=== PATIENT | male | born 1985 | race Caucasian/White ===

== ENCOUNTER → 2017-04-24 | Outpatient (CLI) | payer MEDICARE, OTHER | END | disposition home or self-care (01) | LOC: LABWHC1 16:29 | PROVIDERS: ATTEND Psychiatry & Neurology Neurology | DX: G40.209 Localization-related (focal) (partial) symptomatic epilepsy and epileptic syndromes with complex partial seizures, not intractable, without status epilepticus (principal) | CPT/HCPCS: 36415; 80164; 84450; 84460 ==

== ENCOUNTER → 2017-07-25 | Outpatient (CLI) | payer MEDICARE, OTHER ==
[2017-07-25 15:22] LABS: Basophils # (A) 0.1 k/uL (0-0.2); Basophils % (A) 1 %; CH 32.2; CHCM 34.7; Eosinophils # (A) 0.1 k/uL (0-0.7); Eosinophils % (A) 1 %; HCT 41.1 % (39.0-53.0); HGB 14.1 gm/dL (13.0-17.5); Luc # (Auto) 0.11; Luc % (Auto) 1; Lymphocytes # (A) 2.3 k/uL (1.0-4.8); Lymphocytes % (A) 24 %; MCH 32.2 pg (25.0-35.0); MCHC 34.5 g/dL (31.0-37.0); MCV 93.4 fL (80.0-100.0); Mean Platelet Volume 7.1; Monocytes # (A) 0.4 k/uL (0-1.0); Monocytes % (A) 4 %; Neutrophils # (A) 6.6 k/uL (1.3-7.7); Neutrophils % (A) 69 %; RDW 14.6 % (11.5-15.5); WBC 9.6 k/uL (3.8-10.6); WBC (Perox) 10.14
== END | disposition home or self-care (01) ==
LOC: LABWHC1 15:01
PROVIDERS: ATTEND Psychiatry & Neurology Neurology
DX: G40.209 Localization-related (focal) (partial) symptomatic epilepsy and epileptic syndromes with complex partial seizures, not intractable, without status epilepticus (principal)
CPT/HCPCS: 36415; 80164; 84450; 84460; 85025

== ENCOUNTER → 2017-12-26 | Outpatient (CLI) | payer MEDICARE, OTHER ==
[2017-12-26 11:29] LABS: Basophils # (A) 0.1 k/uL (0-0.2); Basophils % (A) 1 %; Eosinophils # (A) 0.2 k/uL (0-0.7); Eosinophils % (A) 2 %; HCT 45.4 % (39.0-53.0); HGB 15.5 gm/dL (13.0-17.5); Lymphocytes # (A) 2.9 k/uL (1.0-4.8); Lymphocytes % (A) 30 %; MCH 31.4 pg (25.0-35.0); MCHC 34.1 g/dL (31.0-37.0); MCV 91.9 fL (80.0-100.0); Mean Platelet Volume 6.7; Monocytes # (A) 0.5 k/uL (0-1.0); Monocytes % (A) 6 %; Neutrophils # (A) 5.6 k/uL (1.3-7.7); Neutrophils % (A) 59 %; Platelet Count 265 k/uL (150-450); RBC 4.94 m/uL (4.30-5.90); RDW 12.8 % (11.5-15.5); WBC 9.5 k/uL (3.8-10.6)
[2017-12-26 11:38] LABS: Valproic Acid (Depakene) 32.1 ug/mL
== END | disposition home or self-care (01) ==
LOC: LABWHC1 10:46
PROVIDERS: ATTEND Psychiatry & Neurology Neurology
DX: G40.209 Localization-related (focal) (partial) symptomatic epilepsy and epileptic syndromes with complex partial seizures, not intractable, without status epilepticus (principal)
CPT/HCPCS: 36415; 80164; 84450; 84460; 85025

== ENCOUNTER → 2018-01-01 | Outpatient (CLI) | payer MEDICARE, OTHER | END | disposition home or self-care (01) | LOC: LABWHC1 10:47 | PROVIDERS: ATTEND Psychiatry & Neurology Neurology | DX: G40.209 Localization-related (focal) (partial) symptomatic epilepsy and epileptic syndromes with complex partial seizures, not intractable, without status epilepticus (principal) | CPT/HCPCS: 36415; 80164 ==

== ENCOUNTER → 2018-01-07 | Outpatient (CLI) | payer MEDICARE, OTHER | END | disposition home or self-care (01) | LOC: LABWHC1 13:54 | PROVIDERS: ATTEND Psychiatry & Neurology Neurology | DX: G40.209 Localization-related (focal) (partial) symptomatic epilepsy and epileptic syndromes with complex partial seizures, not intractable, without status epilepticus (principal) | CPT/HCPCS: 36415; 80164 ==

== ENCOUNTER → 2018-01-18 | Outpatient (CLI) | payer MEDICARE, OTHER | END | disposition home or self-care (01) | LOC: LABWHC1 15:28 | PROVIDERS: ATTEND Psychiatry & Neurology Neurology | DX: G40.209 Localization-related (focal) (partial) symptomatic epilepsy and epileptic syndromes with complex partial seizures, not intractable, without status epilepticus (principal) | CPT/HCPCS: 36415; 80164 ==

== ENCOUNTER → 2018-07-09 | Outpatient (CLI) | payer MEDICARE, OTHER ==
[2018-07-09 13:43] LABS: Basophils % (A) 1 %; Eosinophils # (A) 0.2 k/uL (0-0.7); Eosinophils % (A) 3 %; HGB 14.7 gm/dL (13.0-17.5); Lymphocytes # (A) 2.3 k/uL (1.0-4.8); Lymphocytes % (A) 33 %; MCHC 34.1 g/dL (31.0-37.0); MCV 90.9 fL (80.0-100.0); Mean Platelet Volume 6.4; Monocytes # (A) 0.5 k/uL (0-1.0); Monocytes % (A) 7 %; Neutrophils # (A) 3.8 k/uL (1.3-7.7); Neutrophils % (A) 54 %; Platelet Count 282 k/uL (150-450); RBC 4.73 m/uL (4.30-5.90); RDW 13.2 % (11.5-15.5)
[2018-07-09 14:10] LABS: Valproic Acid (Depakene) 11.8 ug/mL
== END | disposition home or self-care (01) ==
LOC: LABWHC1 12:19
PROVIDERS: ATTEND Psychiatry & Neurology Neurology
DX: G40.209 Localization-related (focal) (partial) symptomatic epilepsy and epileptic syndromes with complex partial seizures, not intractable, without status epilepticus (principal)
CPT/HCPCS: 36415; 80164; 84450; 84460; 85025

== ENCOUNTER → 2018-07-17 | Outpatient (CLI) | payer MEDICARE, OTHER ==
--- NOTE | 2018-07-17 09:27 | CT ---
EXAMINATION TYPE: CT brain wo con DATE OF EXAM: 07/17/2018 COMPARISON: None HISTORY: epilepsy CT DLP: [address] of the brain was performed. Craniotomy change high right parietal occipital region with postoperative encephalomalacia noted. The the remaining ventricles, basal cisterns and sulci overlying the cerebral convexities demonstrate a normal appearance. There is no evidence for intracranial hemorrhage or sulcal effacement. No mass effects are seen. Osseous calvarium is intact. If symptoms persist consider MRI as clinically warranted. IMPRESSION: 1. No acute intracranial process is seen at this time. Postoperative changes of high right parietal occipital craniotomy. Underlying postoperative encephalomalacia.
== END | disposition home or self-care (01) ==
LOC: RADCTMAIN 09:01
PROVIDERS: ATTEND Psychiatry & Neurology Neurology
DX: G93.89 Other specified disorders of brain (principal); Z98.890 Other specified postprocedural states
CPT/HCPCS: 70450

== ENCOUNTER 2019-05-30 12:59 | Emergency (ER) | payer MEDICARE, OTHER, BC ==
[2019-05-30 13:17] VITALS: BP 113/69; PULSE 75; RESP 18; TEMP 98.5
[2019-05-30] MEDS ORDERED: LIDOCAINE 1% INJ 10MG/ML (20 ML MDV) SQ ONE (13:30)
[2019-05-30] MEDS ORDERED: DIPH,PERTUS(ACELL)TETVAC-LF 0.5 ML VIAL IM ONE (13:30)
--- NOTE | 2019-05-30 14:06 | ED ---
Wound/Laceration HPI - General Chief Complaint: Wound/Laceration Stated Complaint: Thumb Laceration Time Seen by Provider: 05/30/19 13:27 Source: patient Mode of arrival: ambulatory Limitations: no limitations - History of Present Illness Initial Comments: Patient is a 33-year-old male presents to emergency Department with a laceration to the left thumb. Patient states he was trying to cut something and slipped and cut his thumb. Patient does not know his last tetanus vaccine. Bleeding is controlled at this time. Patient has no other complaints at this time. - Related Data Allergies Allergy/AdvReac Type Severity Reaction Status Date / Time Cephalosporins Allergy Unknown Verified 05/30/19 13:18 Penicillins Allergy Unknown Verified 05/30/19 13:18 Review of Systems ROS Statement: Those systems with pertinent positive or pertinent negative responses have been documented in the HPI. ROS Other: All systems not noted in ROS Statement are negative. Past Medical History Past Medical History: No Reported History History of Any Multi-Drug Resistant Organisms: MRSA Date of last positivie culture/infection: 99 Additional Past Surgical History / Comment(s): head plastic surgery, avm repair to brain Past Psychological History: No Psychological Hx Reported Smoking Status: Current every day smoker Past Alcohol Use History: None Reported Past Drug Use History: Marijuana General Exam - General Exam Comments Initial Comments: GENERAL: Well-appearing, well-nourished and in no acute distress. HEAD: Atraumatic, normocephalic. EYES: Pupils equal round and reactive to light, extraocular movements intact, sclera anicteric, conjunctiva are normal. ENT: TMs normal, nares patent, oropharynx clear without exudates. Moist mucous membranes. NECK: Normal range of motion, supple without lymphadenopathy or JVD. LUNGS: Breath sounds clear to auscultation bilaterally and equal. No wheezes rales or rhonchi. HEART: Regular rate and rhythm without murmurs, rubs or gallops. ABDOMEN: Soft, nontender, normoactive bowel sounds. No guarding, no rebound. No masses appreciated. : Deferred EXTREMITIES: Normal range of motion, no pitting or edema. No clubbing or cyanosis. NEUROLOGICAL: Cranial nerves II through XII grossly intact. Normal speech, normal gait. PSYCH: Normal mood, normal affect. Limitations: no limitations Expanded Type of lesion: Present: laceration (Left thumb, dorsal aspect proximal to the IP joint.) Course Vital Signs 05/30/19 13:14 Temperature 98.5 F Pulse Rate 75 Respiratory 18 Rate Blood Pressure 113/69 O2 Sat by Pulse 97 Oximetry Procedures - Laceration Laceration #1 Consent Obtained: verbal consent Indication: laceration Site: other (Left thumb, dorsal aspect, proximal to the IP joint) Size (cm): 1 Description: linear Depth: simple, single layer Anesthetic Used: lidocaine 1% Anesthesia Technique: local infiltration Amount (mls): 2 Pre-repair: irrigated extensively Type of Sutures: nylon Size of Sutures: 4-0 Number of Sutures: 2 Technique: simple, interrupted Patient Tolerated Procedure: well Medical Decision Making - Medical Decision Making Patient is a 33-year-old male with a laceration to his left thumb. Wound was cleaned, and closed with 2, 4-0 sutures. Patient tolerated procedures well. Patient will return in 10-12 days to have them removed. Patient is in agreement with this plan. Patient's tetanus vaccine was updated today. Case discussed with Dr. Briceno. Disposition Clinical Impression: Laceration of left thumb Disposition: HOME SELF-CARE Condition: Stable Instructions (If sedation given, give patient instructions): Care For Your Stitches (ED) Additional Instructions: Please return to the Emergency Department if symptoms worsen or any other concerns. Sutures need to be removed in 10-12 days. Is patient prescribed a controlled substance at d/c from ED?: No Referrals: Jared Collins MD [Primary Care Provider] - 1-2 days
== END 2019-05-30 14:18 | disposition home or self-care (01) ==
LOC: EC 12:59
DX: S61.012A Laceration without foreign body of left thumb without damage to nail, initial encounter (principal); F17.200 Nicotine dependence, unspecified, uncomplicated; Z23 Encounter for immunization; Z86.14 Personal history of Methicillin resistant Staphylococcus aureus infection; Z88.1 Allergy status to other antibiotic agents; Z88.0 Allergy status to penicillin; W26.8XXA Contact with other sharp object(s), not elsewhere classified, initial encounter; Y93.89 Activity, other specified
CPT/HCPCS: 90715; 99282; 12001; 90471; J2001

== ENCOUNTER 2019-11-18 08:56 | Inpatient (IN) | payer MEDICARE, MEDICAID ==
--- NOTE | 2019-11-18 09:30 | ED ---
General Adult HPI - General Chief complaint: Psychiatric Symptoms Stated complaint: mental health Time Seen by Provider: 11/18/19 09:06 Source: patient, family, RN notes reviewed, old records reviewed Mode of arrival: ambulatory Limitations: no limitations - History of Present Illness Initial comments: 33-year-old male presenting for psychiatric evaluation. Patient's reports increased suicidal ideation and plan to cut himself with a razor. He states he went to the store to buy a razor or steal a razor but was unable to do so. He's had increased marital issues and has been fighting with his . Denies any drug ingestion. Denies alcohol abuse. History of depression. - Related Data Home Medications Medication Instructions Recorded Confirmed No Known Home Medications 11/18/19 11/18/19 Allergies Allergy/AdvReac Type Severity Reaction Status Date / Time Cephalosporins Allergy Unknown Verified 11/18/19 10:52 Penicillins Allergy Unknown Verified 11/18/19 10:52 Review of Systems ROS Statement: Those systems with pertinent positive or pertinent negative responses have been documented in the HPI. ROS Other: All systems not noted in ROS Statement are negative. Past Medical History Past Medical History: No Reported History History of Any Multi-Drug Resistant Organisms: MRSA Date of last positivie culture/infection: 99 Additional Past Surgical History / Comment(s): head plastic surgery, avm repair to brain Past Psychological History: No Psychological Hx Reported Smoking Status: Current every day smoker Past Alcohol Use History: None Reported Past Drug Use History: Marijuana General Exam Limitations: no limitations General appearance: alert, in no apparent distress Head exam: Present: atraumatic, normocephalic Eye exam: Present: normal appearance, PERRL ENT exam: Present: normal exam Neck exam: Present: normal inspection. Absent: tenderness, meningismus Respiratory exam: Present: normal lung sounds bilaterally. Absent: respiratory distress, wheezes Cardiovascular Exam: Present: regular rate, normal rhythm GI/Abdominal exam: Present: soft. Absent: distended, tenderness Extremities exam: Present: normal inspection, normal capillary refill. Absent: pedal edema Neurological exam: Present: alert, oriented X3, CN II-XII intact. Absent: motor sensory deficit Psychiatric exam: Present: depressed, anxious, suicidal ideation Skin exam: Present: warm, dry, intact. Absent: cyanosis, diaphoretic Course Vital Signs 11/18/19 08:57 Temperature 98.2 F Pulse Rate 84 Respiratory 16 Rate Blood Pressure 146/82 O2 Sat by Pulse 98 Oximetry Medical Decision Making - Medical Decision Making 33 yo male presenting with suicidal ideation and depression. Patient was evaluated, medically cleared. He was evaluated by EPS and felt to require inpatient psychiatric evaluation treatment. He will be admitted to this [facility]. - Lab Data Result diagrams: 11/18/19 11:42 11/18/19 11:42 Lab Results 11/18/19 11/18/19 11/18/19 Range/Units 11:42 11:42 12:30 WBC 10.5 (3.8-10.6) k/uL RBC 4.98 (4.30-5.90) m/uL Hgb 15.2 (13.0-17.5) gm/dL Hct 44.5 (39.0-53.0) % MCV 89.4 (80.0-100.0) fL MCH 30.5 (25.0-35.0) pg MCHC 34.1 (31.0-37.0) g/dL RDW 12.6 (11.5-15.5) % Plt Count 310 (150-450) k/uL Neutrophils % 71 % Lymphocytes % 22 % Monocytes % 5 % Eosinophils % 1 % Basophils % 0 % Neutrophils # 7.4 (1.3-7.7) k/uL Lymphocytes # 2.3 (1.0-4.8) k/uL Monocytes # 0.5 (0-1.0) k/uL Eosinophils # 0.1 (0-0.7) k/uL Basophils # 0.0 (0-0.2) k/uL Sodium 142 (137-145) mmol/L Potassium 4.3 (3.5-5.1) mmol/L Chloride 106 (98-107) mmol/L Carbon Dioxide 22 (22-30) mmol/L Anion Gap 14 mmol/L BUN 16 (9-20) mg/dL Creatinine 0.65 L (0.66-1.25) mg/dL Est GFR (CKD-EPI)AfAm >90 (>60 ml/min/1.73 sqM) Est GFR (CKD-EPI)NonAf >90 (>60 ml/min/1.73 sqM) Glucose 87 (74-99) mg/dL Calcium 10.6 H (8.4-10.2) mg/dL Total Bilirubin 0.6 (0.2-1.3) mg/dL AST 26 (17-59) U/L ALT 23 (4-49) U/L Alkaline Phosphatase 111 (38-126) U/L Total Protein 7.9 (6.3-8.2) g/dL Albumin 4.9 (3.5-5.0) g/dL Urine Color Yellow Urine Appearance Clear (Clear) Urine pH 6.0 (5.0-8.0) Ur Specific [place] 1.020 (1.001-1.035) Urine Protein Negative (Negative) Urine Glucose (UA) Negative (Negative) Urine Ketones Trace H (Negative) Urine Blood Negative (Negative) Urine Nitrite Negative (Negative) Urine Bilirubin Negative (Negative) Urine Urobilinogen <2.0 (<2.0) mg/dL Ur Leukocyte Esterase Negative (Negative) Urine Opiates Screen Not Detected (NotDetected) Ur Oxycodone Screen Not Detected (NotDetected) Urine Methadone Screen Not Detected (NotDetected) Ur Propoxyphene Screen Not Detected (NotDetected) Ur Barbiturates Screen Not Detected (NotDetected) U Tricyclic Antidepress Not Detected (NotDetected) Ur Phencyclidine Scrn Not Detected (NotDetected) Ur Amphetamines Screen Not Detected (NotDetected) U Methamphetamines Scrn Not Detected (NotDetected) U Benzodiazepines Scrn Not Detected (NotDetected) Urine Cocaine Screen Not Detected (NotDetected) U Marijuana (THC) Screen Detected H (NotDetected) Disposition Clinical Impression: Depression, Suicidal ideation Disposition[facility] Condition: Stable Is patient prescribed a controlled substance at d/c from ED?: No Decision to Admit Reason: Admit from EC Decision Date: 11/18/19 Decision Time: 15:03
[2019-11-18 12:33] LABS: Basophils % (A) 0 %; Eosinophils # (A) 0.1 k/uL (0-0.7); Eosinophils % (A) 1 %; HCT 44.5 % (39.0-53.0); HGB 15.2 gm/dL (13.0-17.5); Lymphocytes # (A) 2.3 k/uL (1.0-4.8); Lymphocytes % (A) 22 %; MCH 30.5 pg (25.0-35.0); MCHC 34.1 g/dL (31.0-37.0); MCV 89.4 fL (80.0-100.0); Mean Platelet Volume 6.8; Monocytes # (A) 0.5 k/uL (0-1.0); Monocytes % (A) 5 %; Neutrophils # (A) 7.4 k/uL (1.3-7.7); Neutrophils % (A) 71 %; Platelet Count 310 k/uL (150-450); RBC 4.98 m/uL (4.30-5.90); RDW 12.6 % (11.5-15.5); WBC 10.5 k/uL (3.8-10.6)
[2019-11-18 12:45] LABS: ALT 23 U/L (4-49); AST 26 U/L (17-59); African American GFR (CKD) >90 (>60 ml/min/1.73 sqM); Albumin 4.9 g/dL (3.5-5.0); Alkaline Phosphatase 111 U/L (38-126); Anion Gap 14 mmol/L; Blood Urea Nitrogen 16 mg/dL (9-20); Calcium 10.6 mg/dL (8.4-10.2); Carbon Dioxide 22 mmol/L (22-30); Chloride 106 mmol/L (98-107); Glucose 87 mg/dL (74-99); Non-African American GFR(CKD) >90 (>60 ml/min/1.73 sqM); Potassium 4.3 mmol/L (3.5-5.1); Sodium 142 mmol/L (137-145); Total Bilirubin 0.6 mg/dL (0.2-1.3); Total Protein 7.9 g/dL (6.3-8.2)
[2019-11-18 13:13] LABS: Appearance,Urine Clear (Clear); Bilirubin,Urine Negative (Negative); Blood,Urine Negative (Negative); Color,Urine Yellow; Glucose,Urine (UA) Negative (Negative); Ketones,Urine Trace (Negative); Leukocyte Esterase,Urine Negative (Negative); Nitrite,Urine Negative (Negative); Protein,Urine Negative (Negative); Urobilinogen,Urine <2.0 mg/dL (<2.0)
[2019-11-18 13:24] LABS: Amphetamine Screen,Urine Not Detected (NotDetected); Barbiturate Screen,Urine Not Detected (NotDetected); Benzodiazepines Screen,Urine Not Detected (NotDetected); Cocaine Screen,Urine Not Detected (NotDetected); Methadone Screen, Urine Not Detected (NotDetected); Opiate Screen,Urine Not Detected (NotDetected); Oxycodone Screen, Urine Not Detected (NotDetected); Phencyclidine Screen,Urine Not Detected (NotDetected); Tricyclic Antidepressant,Urine Not Detected (NotDetected); Urn Cannabinoid Scrn Detected (NotDetected)
[2019-11-18] MEDS ORDERED: MAG HYDROX/AL HYDROX/SIMETH 30 ML CUP PO PRN (14:39)
[2019-11-18] MEDS ORDERED: ACETAMINOPHEN TAB 325 MG TAB PO PRN (14:39)
[2019-11-18] MEDS ORDERED: MAGNESIUM HYDROXIDE 2,400 MG/10 ML CUP PO PRN (14:39)
[2019-11-18] MEDS ORDERED: ZIPRASIDONE 20 MG VIAL IM PRN (14:39)
[2019-11-18] MEDS: NICOTINE 14MG/24HR PATCH TRANSDERM SCH ×2 (15:22→18:28)
--- NOTE | 2019-11-18 15:43 | P.HP ---
Psychiatric H&P - . History & Physical: DATE OF SERVICE: 11/18/2019 IDENTIFYING DATA: This patient is a 33-year-old single male who was admitted to the mental health unit through ER. HISTORY OF PRESENT ILLNESS: The patient presented to ER with reports of having suicidal ideations. The patient reports that his depression has been getting worse for past 3 days. The patient reports that he had a fight with his his girlfriend and decided to move out to his friend's house. The patient reports that he has been staying with his friend for last couple of days and has been drinking. The patient was not able to specify of how much he was drinking. The patient reports feeling increasingly anxious and agitated. He reports that he has history of low agitation and poor anger issues. The patient reports that he shouts and yells and break things when he is angry. The patient reports that he is toward that his attitude changed sin's his brain surgery in 1998 for a brain hemorrhage. The patient reports good sleep and appetite. The patient denies any auditory or visual hallucinations. He reports feeling angry and upset with his and was swearing during the interview. The patient reports that he wanted to end his life and wanted to cut his wrist. The patient reports that he could not find a razor to cut his wrists when he went to a store to either buy or his dealer razor but could not find one. The patient reported that he then decided to come into the hospital to get help.. PAST PSYCHIATRIC HISTORY: [0]. Past hospitalizations: Denies Suicidal attempts: Denies Medications: None Past Medical History Past Medical History: No Reported History History of Any Multi-Drug Resistant Organisms: MRSA Date of last positivie culture/infection: 99 Additional Past Surgical History / Comment(s): head plastic surgery, avm repair to brain Past Psychological History: No Psychological Hx Reported Smoking Status: Current every day smoker Past Alcohol Use History: None Reported Past Drug Use History: Marijuana CHEMICAL DEPENDENCY HISTORY: Alcohol Marijuana FAMILY PSYCHIATRIC HISTORY: [The patient denies any family history of psychiatric problems]. FAMILY CHEMICAL DEPENDENCY HISTORY:[The patient reports that his brother is a heroin addict and has an uncle who was an alcoholic. ]. LEGAL HISTORY: [Denies]. SOCIAL HISTORY: [The patient reports that he has never been and is currently living with his long-term girlfriend. The patient reports that he has not spoken to his family last 3 years. Patient reports that his parents are alive and together. He has one older brother who is a heroin addict]. Allergies Allergy/AdvReac Type Severity Reaction Status Date / Time Cephalosporins Allergy Unknown Verified 11/18/19 10:52 Penicillins Allergy Unknown Verified 11/18/19 10:52 Vital Signs Temp 98.2 F 11/18/19 08:57 Pulse 84 11/18/19 08:57 Resp 16 11/18/19 08:57 BP 146/82 11/18/19 08:57 Pulse Ox 98 11/18/19 08:57 Intake & Output 11/17/19 11/18/19 11/18/19 18:59 06:59 18:59 Weight 72.575 kg Laboratory Last Values WBC 10.5 k/uL (3.8-10.6) 11/18/19 11:42 RBC 4.98 m/uL (4.30-5.90) 11/18/19 11:42 Hgb 15.2 gm/dL (13.0-17.5) 11/18/19 11:42 Hct 44.5 % (39.0-53.0) 11/18/19 11:42 MCV 89.4 fL (80.0-100.0) 11/18/19 11:42 MCH 30.5 pg (25.0-35.0) 11/18/19 11:42 MCHC 34.1 g/dL (31.0-37.0) 11/18/19 11:42 RDW 12.6 % (11.5-15.5) 11/18/19 11:42 Plt Count 310 k/uL (150-450) 11/18/19 11:42 Neutrophils % 71 % 11/18/19 11:42 Lymphocytes % 22 % 11/18/19 11:42 Monocytes % 5 % 11/18/19 11:42 Eosinophils % 1 % 11/18/19 11:42 Basophils % 0 % 11/18/19 11:42 Neutrophils # 7.4 k/uL (1.3-7.7) 11/18/19 11:42 Lymphocytes # 2.3 k/uL (1.0-4.8) 11/18/19 11:42 Monocytes # 0.5 k/uL (0-1.0) 11/18/19 11:42 Eosinophils # 0.1 k/uL (0-0.7) 11/18/19 11:42 Basophils # 0.0 k/uL (0-0.2) 11/18/19 11:42 Sodium 142 mmol/L (137-145) 11/18/19 11:42 Potassium 4.3 mmol/L (3.5-5.1) 11/18/19 11:42 Chloride 106 mmol/L (98-107) 11/18/19 11:42 Carbon Dioxide 22 mmol/L (22-30) 11/18/19 11:42 Anion Gap 14 mmol/L 11/18/19 11:42 BUN 16 mg/dL (9-20) 11/18/19 11:42 Creatinine 0.65 mg/dL (0.66-1.25) L 11/18/19 11:42 Est GFR (CKD-EPI)AfAm >90 (>60 ml/min/1.73 sqM) 11/18/19 11:42 Est GFR (CKD-EPI)NonAf >90 (>60 ml/min/1.73 sqM) 11/18/19 11:42 Glucose 87 mg/dL (74-99) 11/18/19 11:42 Calcium 10.6 mg/dL (8.4-10.2) H 11/18/19 11:42 Total Bilirubin 0.6 mg/dL (0.2-1.3) 11/18/19 11:42 AST 26 U/L (17-59) 11/18/19 11:42 ALT 23 U/L (4-49) 11/18/19 11:42 Alkaline Phosphatase 111 U/L (38-126) 11/18/19 11:42 Total Protein 7.9 g/dL (6.3-8.2) 11/18/19 11:42 Albumin 4.9 g/dL (3.5-5.0) 11/18/19 11:42 Urine Color Yellow 11/18/19 12:30 Urine Appearance Clear (Clear) 11/18/19 12:30 Urine pH 6.0 (5.0-8.0) 11/18/19 12:30 Ur Specific [place] 1.020 (1.001-1.035) 11/18/19 12:30 Urine Protein Negative (Negative) 11/18/19 12:30 Urine Glucose (UA) Negative (Negative) 11/18/19 12:30 Urine Ketones Trace (Negative) H 11/18/19 12:30 Urine Blood Negative (Negative) 11/18/19 12:30 Urine Nitrite Negative (Negative) 11/18/19 12:30 Urine Bilirubin Negative (Negative) 11/18/19 12:30 Urine Urobilinogen <2.0 mg/dL (<2.0) 11/18/19 12:30 Ur Leukocyte Esterase Negative (Negative) 11/18/19 12:30 Urine Opiates Screen Not Detected (NotDetected) 11/18/19 12:30 Ur Oxycodone Screen Not Detected (NotDetected) 11/18/19 12:30 Urine Methadone Screen Not Detected (NotDetected) 11/18/19 12:30 Ur Propoxyphene Screen Not Detected (NotDetected) 11/18/19 12:30 Ur Barbiturates Screen Not Detected (NotDetected) 11/18/19 12:30 U Tricyclic Antidepress Not Detected (NotDetected) 11/18/19 12:30 Ur Phencyclidine Scrn Not Detected (NotDetected) 11/18/19 12:30 Ur Amphetamines Screen Not Detected (NotDetected) 11/18/19 12:30 U Methamphetamines Scrn Not Detected (NotDetected) 11/18/19 12:30 U Benzodiazepines Scrn Not Detected (NotDetected) 11/18/19 12:30 Urine Cocaine Screen Not Detected (NotDetected) 11/18/19 12:30 U Marijuana (THC) Screen Detected (NotDetected) H 11/18/19 12:30 MENTAL STATUS EXAM: General Appearance: Patient appears to be stated age is alert, directable. fPatient has fair eye contact. Behavior: Patient is seated with some restlessness and is showing psychomotor agitation.. Appears to be anxious Speech: Patient's speech is loud and pressured. His speech is somewhat circumstantial and rambling. He is somewhat evasive about some of his symptoms. Mood/Affect: Patient reports their mood/anxiety is depressed, affect is agitated Suicidality/Homicidality: Patient reports having suicidal ideation with plans to slash his wrist. The patient denies any homicidal ideations. Perceptions: The patient denies any auditory or visual hallucinations Though content/process: The patient denies any paranoia. Memory and concentration: AOX3, grossly intact for the purposes of this session. 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 patient signed for voluntary admission and also signed for medication consent which is placed in patient's chart. Admit to the mental health unit. Placed on suicidal precautions 1:1 support and psychotherapy -Would recommend the following medication changes/additions: after reviewing patient's labs and persistently elevated LFTs, Start Neurontin 300 mg by mouth 3 times a day -Started thiamine, MVM for etoh use -Patient was counselled on substance abuse and desired to cut back on use -Patient was informed of the risks, benefits and side effects of the medication and patient verbally consented to taking the medications. Patient signed med consent form and was placed in chart. -NRT - nicotine patch -SW on board for discharge planning.
[2019-11-18] MEDS: GABAPENTIN 300 MG CAP PO SCH ×2 (16:02→21:58)
--- NOTE | 2019-11-18 18:19 | P.HPMEDMHU ---
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 He reports that he was on antiepileptic drugs secondary to seizure prophylaxis post- cerebral hemorrhage. The patient denies any history of actual seizures and reports that he was taken off AEDs approximately a year ago. the patient denies any chest pain or shortness of breath, denies any somatic complaints. Today in particular, the patient presented with suicidal ideation reporting that he was seeking a razor to slit his wrists. Apparently him and his got into a verbal quarrel at home, patient also reports increased social stressors such as losing 2 drops recently. in the ER the patient had a UDS done that was positive for THC Review of Systems pertinent positives per HPI all other review of his otherwise negative Past Medical History Past Medical History: No Reported History History of Any Multi-Drug Resistant Organisms: None Reported Date of last positivie culture/infection: 99 Additional Past Surgical History / Comment(s): head plastic surgery, avm repair to brain Past Anesthesia/Blood Transfusion Reactions: No Reported Reaction Past Psychological History: No Psychological Hx Reported Smoking Status: Current every day smoker Past Alcohol Use History: None Reported Past Drug Use History: Marijuana Medications and Allergies Home Medications Medication Instructions Recorded Confirmed Type No Known Home Medications 11/18/19 11/18/19 History Allergies Allergy/AdvReac Type Severity Reaction Status Date / Time Cephalosporins Allergy Unknown Verified 11/18/19 15:18 Penicillins Allergy Unknown Verified 11/18/19 15:18 Physical Exam Vitals: Vital Signs Temp Pulse Pulse Resp BP BP Pulse Ox 11/18/19 16:26 98.1 F 103 H 20 111/76 11/18/19 08:57 98.2 F 84 16 146/82 98 Intake and Output 11/18/19 11/18/19 11/18/19 06:59 14:59 22:59 Other: Weight 72.575 kg 64.5 kg Constitutional: No acute distress, conversant, pleasant Eyes: Anicteric sclerae, moist conjunctiva, no lid-lag, PERRLA ENMT: NC/AT,Oropharynx clear, no erythema, exudates Neck:Supple, FROM, no masses, or JVD, No carotid bruits; No thyromegaly Lungs: Clear to auscultation, Clear to percussion, Normal respiratory effort, no accessory muscle use Cardiovascular: Heart regular in rate and rhythm, No murmurs, gallops, or rubs no peripheral edema Abdominal: Soft Nontender, nom distended, no guarding, no rebound or rigidity, Normoactive bowel sounds No hepatomegaly, No splenomegaly, No palpable mass No abdominal wall hernia noted Skin: Normal temperature, tone, texture, turgor, No induration No subcutaneous nodules, No rash, lesions, No ulcers Extremities:No digital cyanosis No clubbing, Pedal pulses intact and symmetrical Radial pulses intact and symmetrical Normal gait and station, No calf tenderness Psychiatric: Alert and oriented to person, place and time, agitated and irritable Neuro: Muscles Strength 5/5 in all 4 extremities, Sensation to light touch grossly present throughout, Cranial nerves II-XII grossly intact. No focal sensory deficits Cranial Nerve Examination - Cranial Nerves Cranial Nerve II- Optic: Intact Cranial Nerve III- Oculomotor: Intact Cranial Nerve IV- Trochlear: Intact Cranial Nerve V- Trigeminal: Intact Cranial Nerve - Abducens: Intact Cranial Nerve VII- Facial: Intact Cranial Nerve VIII- Auditory: Intact Cranial Nerve IX- Glossopharyngeal: Intact Cranial Nerve X- Vagus: Intact Cranial Nerve XI- Accessory: Intact Cranial Nerve XII- Hypoglossal: Intact Results CBC & Chem 7: 11/18/19 11:42 11/18/19 11:42 Labs: Abnormal Lab Results - Last 24 Hours (Table) 11/18/19 11/18/19 Range/Units 11:42 12:30 Creatinine 0.65 L (0.66-1.25) mg/dL Calcium 10.6 H (8.4-10.2) mg/dL Urine Ketones Trace H (Negative) U Marijuana (THC) Screen Detected H (NotDetected) Thrombosis Risk Factor Assmnt - Choose All That Apply Any of the Below Risk Factors Present?: No Other Risk Factors: No Other congenital or acquired thrombophilia - If yes, enter type in comment: No Thrombosis Risk Factor Assessment Level: Very Low Risk Assessment and Plan Assessment: mood disorder suicidal ideation History of brain hemorrhage secondary to AVM Plan: the patient is admitted to the acute inpatient psychiatry team will defer to them regarding ongoing psychotropic therapies along with cognitive behavioral therapy. the patient hemodynamically stable and has no somatic complaints today, we'll plan to sign off on this patient. For further questions please not hesitate to contact the sound inpatient team.
[2019-11-19] MEDS: GABAPENTIN 300 MG CAP PO SCH ×3 (09:12→21:18)
[2019-11-19 09:32] VITALS: BMI 18.7
[2019-11-19] MEDS: NICOTINE 14MG/24HR PATCH TRANSDERM SCH (10:48)
--- NOTE | 2019-11-19 14:11 | P.PN ---
Subjective Progress Note Date: 11/19/19 Chief complaint: "I a lot better today" Subjective: The patient has been seen today as follow-up, chart reviewed, case discussed with the treatment team. The patient reports feeling much better today. The patient reports that he did not sleep good last night. He reports feeling tired today. The patient reports that he had a good conversation with his over the phone. The patient reported that he and his are talking about getting counseling. The patient has been compliant with the treatment. He continues to all be a little hyperverbal but is easily redirectable. The patient denies any auditory or visual hallucinations he denies any active suicidal or homicidal paranoid ideations at this time. The patient is compliant with his medications and denies any adverse reactions. Objective - Vital Signs Vital signs: Vital Signs Temp 98.1 F 11/18/19 16:26 Pulse 103 H 11/18/19 16:26 Resp 20 11/18/19 16:26 BP 111/76 11/18/19 16:26 Pulse Ox 98 11/18/19 08:57 Intake & Output 11/18/19 11/19/19 11/19/19 18:59 06:59 18:59 Weight 64.5 kg 64.5 kg - Exam Objective: Vitals has been reviewed. Mental status examination; Appearance: The patient appears stated age, adequately groomed and dressed, no specific features. Gait/posture: Normal gait, Normal arm swinging: No abnormal movements. Attitude and behavior: engaged, cooperative, eye contact. Motor activity: Normal psychomotor activity Speech: Normal rate, tone. Mood: Anxious, depressed. Affect: Constricted Thought form: goal-directed, linear, coherent. Thought content: Non-delusional, denies suicidal thoughts or homicidal ideations Perception: Denies any auditory or visual hallucinations Orientation: Patient patient was fully oriented to time place person and situation. Insight: Patient has poor insight about his psychiatric disorder. Judgment: Patient has fair judgment about his psychiatric treatment. 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 patient signed for voluntary admission and also signed for medication consent which is placed in patient's chart. 1:1 support and psychotherapy Continue Neurontin 300 mg by mouth 3 times a day Will start Trazodone 50 mg PO qhs. -Continue thiamine, MVM for etoh use -Patient was counselled on substance abuse and desired to cut back on use -Patient was informed of the risks, benefits and side effects of the medication and patient verbally consented to taking the medications. Patient signed med consent form and was placed in chart. -NRT - nicotine patch -SW on board for discharge planning.
[2019-11-19] MEDS ORDERED: traZODone HCL 50 MG TAB PO SCH (21:00)
[2019-11-20 06:22] VITALS: BP 124/61; PULSE 65; RESP 17; TEMP 98.3
[2019-11-20] MEDS: NICOTINE 14MG/24HR PATCH TRANSDERM SCH (09:17)
[2019-11-20] MEDS: GABAPENTIN 300 MG CAP PO SCH (09:17)
--- NOTE | 2019-11-20 12:12 | P.DS ---
Providers Date of admission: 11/18/19 14:34 Expected date of discharge: 11/20/19 Attending physician: Christopher Cordoba MD Consults: 11/18/19 14:39 Consult Physician Routine Consulting Provider: Dagoberto Physician Consult Reason/Comments: H and P Do you want consulting provider notified?: Yes Primary care physician: Jared Collins - Discharge Diagnosis(es) (1) Mood disorder due to known physiological condition Current Visit: Yes Status: Acute Priority: High (2) Nicotine dependence Current Visit: Yes Status: Acute Priority: Low Hospital Course: Admission HPI: Admission note was dictated by Dr. Ortiz "This patient is a 33-year-old single male who was admitted to the mental health unit through ER. The patient presented to ER with reports of having suicidal ideations. The patient reports that his depression has been getting worse for past 3 days. The patient reports that he had a fight with his his girlfriend and decided to move out to his friend's house. The patient reports that he has been staying with his friend for last couple of days and has been drinking. The patient was not able to specify of how much he was drinking. The patient reports feeling increasingly anxious and agitated. He reports that he has history of low agitation and poor anger issues. The patient reports that he shouts and yells and break things when he is angry. The patient reports that he is toward that his attitude changed sin's his brain surgery in 1998 for a brain hemorrhage. The patient reports good sleep and appetite. The patient denies any auditory or visual tan ucinations. He reports feeling angry and upset with his and was swearing during the interview. The patient reports that he wanted to end his life and wanted to cut his wrist. The patient reports that he could not find a razor to cut his wrists when he went to a store to either buy or his dealer razor but could not find one. The patient reported that he then decided to come into the hospital to get help." Hospital course: Upon admission to the unit patient was initially depressed and suicidal. Patient was however directable and agreeable to commence treatment. Patient got along well with other patients on the unit and followed unit protocol. Patient was compliant with the medications and denied any side effects throughout hospital course. Patient was started on trazodone 50 mg daily at bedtime for insomnia/mood. Patient was also started on Neurontin 300 mg 3 times a day for anxiety. Patient spoke of his stressors and engaged in therapy both group and individual. Patient was also seen by medical team for history and physical exam. Throughout the course of the hospitalization patient gradually improved with regards to mood, anxiety, sleep and became future oriented with improved insight and judgment. On the day of discharge patient denied any suicidal or homicidal ideations intent or plan denied any auditory or visual hallucinations. Patient also spoke about speaking to his over the phone several times while he was admitted on the unit and have been trying to work on their problems at home. Patient claims that they are both in agreement with doing marital counseling as an outpatient. Patient endorsed wanting to live for his health and family. The patient denied any access to guns or weapons. Patient denied any paranoia and did not endorse any delusions. Patient does not have a significant history of substance abuse however was counseled on abstaining from all substances including alcohol and marijuana. Patient was also counseled on the medications and need for regular compliance and was encouraged to follow-up with their outpatient appointment for mental health and also for primary care. Prior to discharge a family meeting will be arranged by perinatal social worker to answer any questions and ensure safety upon discharge. egg factory worker reached out to patient's who claims that patient has done better and states that she is okay with him coming home and will be doing outpatient marital counseling with him. Mental status exam: General Appearance: Patient appears to be stated age is alert, directable and cooperative. Patient is in no acute distress and has fair hygiene and grooming Behavior: Patient is calmly seated without any agitated behavior. Cooperative. Speech: Patient's speech is fluent and nonpressured. Mood/Affect: Patient reports their mood is "much better", affect is congruent and euthymic. Suicidality/Homicidality: Patient denies having any suicidal or homicidal ideation intent or plan. Perceptions: Patient denies any auditory or visual hallucinations. Though content/process: There is no evidence of any delusional thought content and thought process is linear and goal-directed. More future oriented. Memory and concentration: AOX3, grossly intact for the purposes of this session. Can spell "WORLD" backwards correctly. Judgment and insight: fair, improved Impression: Mood disorder secondary to a known physiological condition. Nicotine dependence Plan: -Continue with discharge today as patient has improved and stabilized psychiatrically and is not currently an imminent threat to himself and/or others. -Continue medications: Patient to be continued on Neurontin 300 mg 3 times a day for anxiety/mood stability. Patient also to be continued on trazodone 50 mg daily at bedtime for insomnia/mood. -Patient was counseled on the need for medication compliance and appropriate follow-up at mental health and also primary care for medical issues. Patient verbalized understanding and agreed. -Social work to arrange for and conduct family meeting to ensure safety upon discharge and answer any questions/concerns. Social work also to arrange for patients follow up appointment for psychiatric care at [facility] along with follow up with primary care provider. -egg factory worker reached out to patient's who claims that patient has done better and states that she is okay with him coming home and will be doing outpatient marital counseling with him. Encouraged patient to work with his in outpatient marital counseling for domestic problems. -Patient counseled on abstaining from recreational drugs and marijuana and alcohol. Was informed/educated on the adverse effects on their physical and mental health. Patient verbally agreed and understood -Patient was instructed to return to the hospital or seek immediate medical care if their psychiatric or medical symptoms do worsen or reoccur. Allergies Allergy/AdvReac Type Severity Reaction Status Date / Time Cephalosporins Allergy Unknown Verified 11/18/19 15:18 Penicillins Allergy Unknown Verified 11/18/19 15:18 Laboratory Results WBC 10.5 k/uL (3.8-10.6) 11/18/19 11:42 RBC 4.98 m/uL (4.30-5.90) 11/18/19 11:42 Hgb 15.2 gm/dL (13.0-17.5) 11/18/19 11:42 Hct 44.5 % (39.0-53.0) 11/18/19 11:42 MCV 89.4 fL (80.0-100.0) 11/18/19 11:42 MCH 30.5 pg (25.0-35.0) 11/18/19 11:42 MCHC 34.1 g/dL (31.0-37.0) 11/18/19 11:42 RDW 12.6 % (11.5-15.5) 11/18/19 11:42 Plt Count 310 k/uL (150-450) 11/18/19 11:42 Neutrophils % 71 % 11/18/19 11:42 Lymphocytes % 22 % 11/18/19 11:42 Monocytes % 5 % 11/18/19 11:42 Eosinophils % 1 % 11/18/19 11:42 Basophils % 0 % 11/18/19 11:42 Neutrophils # 7.4 k/uL (1.3-7.7) 11/18/19 11:42 Lymphocytes # 2.3 k/uL (1.0-4.8) 11/18/19 11:42 Monocytes # 0.5 k/uL (0-1.0) 11/18/19 11:42 Eosinophils # 0.1 k/uL (0-0.7) 11/18/19 11:42 Basophils # 0.0 k/uL (0-0.2) 11/18/19 11:42 Sodium 142 mmol/L (137-145) 11/18/19 11:42 Potassium 4.3 mmol/L (3.5-5.1) 11/18/19 11:42 Chloride 106 mmol/L (98-107) 11/18/19 11:42 Carbon Dioxide 22 mmol/L (22-30) 11/18/19 11:42 Anion Gap 14 mmol/L 11/18/19 11:42 BUN 16 mg/dL (9-20) 11/18/19 11:42 Creatinine 0.65 mg/dL (0.66-1.25) L 11/18/19 11:42 Est GFR (CKD-EPI)AfAm >90 (>60 ml/min/1.73 sqM) 11/18/19 11:42 Est GFR (CKD-EPI)NonAf >90 (>60 ml/min/1.73 sqM) 11/18/19 11:42 Glucose 87 mg/dL (74-99) 11/18/19 11:42 Calcium 10.6 mg/dL (8.4-10.2) H 11/18/19 11:42 Total Bilirubin 0.6 mg/dL (0.2-1.3) 11/18/19 11:42 AST 26 U/L (17-59) 11/18/19 11:42 ALT 23 U/L (4-49) 11/18/19 11:42 Alkaline Phosphatase 111 U/L (38-126) 11/18/19 11:42 Total Protein 7.9 g/dL (6.3-8.2) 11/18/19 11:42 Albumin 4.9 g/dL (3.5-5.0) 11/18/19 11:42 TSH 0.942 mIU/L (0.465-4.680) 11/18/19 11:42 Urine Color Yellow 11/18/19 12:30 Urine Appearance Clear (Clear) 11/18/19 12:30 Urine pH 6.0 (5.0-8.0) 11/18/19 12:30 Ur Specific [place] 1.020 (1.001-1.035) 11/18/19 12:30 Urine Protein Negative (Negative) 11/18/19 12:30 Urine Glucose (UA) Negative (Negative) 11/18/19 12:30 Urine Ketones Trace (Negative) H 11/18/19 12:30 Urine Blood Negative (Negative) 11/18/19 12:30 Urine Nitrite Negative (Negative) 11/18/19 12:30 Urine Bilirubin Negative (Negative) 11/18/19 12:30 Urine Urobilinogen <2.0 mg/dL (<2.0) 11/18/19 12:30 Ur Leukocyte Esterase Negative (Negative) 11/18/19 12:30 Urine Opiates Screen Not Detected (NotDetected) 11/18/19 12:30 Ur Oxycodone Screen Not Detected (NotDetected) 11/18/19 12:30 Urine Methadone Screen Not Detected (NotDetected) 11/18/19 12:30 Ur Propoxyphene Screen Not Detected (NotDetected) 11/18/19 12:30 Ur Barbiturates Screen Not Detected (NotDetected) 11/18/19 12:30 U Tricyclic Antidepress Not Detected (NotDetected) 11/18/19 12:30 Ur Phencyclidine Scrn Not Detected (NotDetected) 11/18/19 12:30 Ur Amphetamines Screen Not Detected (NotDetected) 11/18/19 12:30 U Methamphetamines Scrn Not Detected (NotDetected) 11/18/19 12:30 U Benzodiazepines Scrn Not Detected (NotDetected) 11/18/19 12:30 Urine Cocaine Screen Not Detected (NotDetected) 11/18/19 12:30 U Marijuana (THC) Screen Detected (NotDetected) H 11/18/19 12:30 Vital Signs Temp 98.3 F 11/20/19 06:21 Pulse 65 11/20/19 06:21 Resp 17 11/20/19 06:21 BP 124/61 11/20/19 06:21 Pulse Ox 97 11/20/19 06:21 Intake & Output 11/19/19 11/20/19 11/20/19 18:59 06:59 18:59 Weight 64.5 kg Patient Condition at Discharge: Stable Plan - Discharge Summary Discharge Rx Participant: No New Discharge Prescriptions: New traZODone HCL [Desyrel] 50 mg PO HS 28 Days tab Nicotine 14Mg/24Hr Patch [Habitrol] 1 patch TRANSDERM DAILY 14 Days patch Gabapentin [Neurontin] 300 mg PO TID 28 Days cap Discharge Medication List Gabapentin [Neurontin] 300 mg PO TID 28 Days cap 11/20/19 [Rx] Nicotine 14Mg/24Hr Patch [Habitrol] 1 patch TRANSDERM DAILY 14 Days patch 11/20/19 [Rx] traZODone HCL [Desyrel] 50 mg PO HS 28 Days tab 11/20/19 [Rx] Follow up Appointment(s)/Referral(s): [facility] - 12/01/19 11:30 am (Yrn Barboza) Jared Collins MD [Primary Care Provider] - 1-2 days Patient Instructions/Handouts: Depression (DC), Help Prevent Suicide (DC) Activity/Diet/Wound Care/Special Instructions: Activity and diet as tolerated. Avoid the use of street drugs and alcohol. Take all medications as prescribed. When you are in need of refills on your medications please contact your medical provider and/or outpatient psychiatrist to have this done. Please go to scheduled outpatient appointment for aftercare. If symptoms return or become worse call the crisis line at and/or go to the nearest emergency room for an evaluation. Discharge Disposition: HOME SELF-CARE
== END 2019-11-20 13:46 | disposition home or self-care (01) | DRG 885 ==
LOC: EC 08:56 → 3MHU 14:34
PROVIDERS: ADMIT Psychiatry & Neurology Psychiatry; ATTEND Psychiatry & Neurology Psychiatry
DX: F39 Unspecified mood [affective] disorder (principal); R45.851 Suicidal ideations; F17.210 Nicotine dependence, cigarettes, uncomplicated; Z71.6 Tobacco abuse counseling; Z91.5 Personal history of self-harm; Z86.14 Personal history of Methicillin resistant Staphylococcus aureus infection; Z86.79 Personal history of other diseases of the circulatory system; Z88.1 Allergy status to other antibiotic agents; Z88.0 Allergy status to penicillin; F41.9 Anxiety disorder, unspecified; G47.00 Insomnia, unspecified; Z81.3 Family history of other psychoactive substance abuse and dependence
CPT/HCPCS: 36415; 80053; 80306; 81003; 82075; 84443; 85025; 99285

== ENCOUNTER → 2021-03-07 | Outpatient (CLI) | payer BC, OTHER | END | disposition home or self-care (01) | LOC: LABWHC1 17:04 | PROVIDERS: ATTEND Emergency Medicine | DX: Z20.822 Contact with and (suspected) exposure to COVID-19 (principal) | CPT/HCPCS: U0003; C9803 ==